=== PATIENT | male | born 1965 | race Caucasian/White ===

== ENCOUNTER 2020-07-04 14:51 | Emergency (ER) | payer BC, SELFPAY ==
[2020-07-04 15:25] VITALS: BP 130/72; PULSE 74; RESP 18; TEMP 36.6; O2SAT 98
[2020-07-04 15:49] VITALS: BP 130/72; PULSE 74; RESP 18; TEMP 36.6; O2SAT 98
--- NOTE | 2020-07-04 16:03 | ED.GENADULT ---
HPI - General Adult General Chief complaint: Skin/Abscess/Foreign Body Stated complaint: Spot on leg Source: patient Mode of arrival: ambulatory Limitations: no limitations History of Present Illness HPI narrative: Patient presents for evaluation of pain and redness to the anterior aspect of the left lower extremity. He first noticed symptoms yesterday. There is an area just below that that he believes he hit against a trailer, however he does not remember injuring the area for which he is be evaluated today. He states that he contacted a family member who works in healthcare and she recommended marking the borders to determine if the area changed in size. Patient indicates over last 24 hours the area has decreased in size. He states that his family member told him it may be cellulitis. He has a history of diabetes but states his blood sugars are running in the 160s. He checks his blood sugar twice daily. He denies any fever, chills, nausea, vomiting. He states that the area is slightly tender to touch, rating his pain is 2 out of 10. He also states that the area is warm to touch. He denies any other complaints. Related Data Home Medications Medication Instructions Recorded Confirmed budesonide-formoterol [Symbicort] 2 puff INHALATION Q12H 07/04/20 07/04/20 metformin 1,000 mg PO BID 07/04/20 07/04/20 pioglitazone 45 mg PO DAILY 07/04/20 07/04/20 simvastatin 40 mg PO DAILY 07/04/20 07/04/20 Allergies Allergy/AdvReac Type Severity Reaction Status Date / Time hydrocodone Allergy Other Verified 07/04/20 15:49 Review of Systems Review of Systems: Narrative: CONSTITUTIONAL: Denies fever, chills, or sweats. EYES: Denies visual changes, redness, or discharge. ENT: Denies rhinorrhea, congestion, sore throat, or otalgia. CARDIOVASCULAR: Denies chest pain, palpitations, or edema. RESPIRATORY: Denies cough or dyspnea. GASTROINTESTINAL: Denies abdominal pain, nausea, vomiting, or diarrhea. GENITOURINARY: Denies dysuria or hematuria. SKIN: Denies rash or itching. Reports redness in the left lower extremity MUSCULOSKELETAL: Denies back pain, joint pain. Reports pain in the left lower extremity NEUROLOGIC: Denies headache, numbness, dizziness, or weakness. PSYCHIATRIC: Denies anxiety or depression. [facility] Past Medical History Medical History (Updated 07/04/20 @ 16:12 by Herrera Cortez [facility], ) Diabetes mellitus type 2, controlled, without complications Hyperlipidemia Surgical History Surgical History History of arthroscopy of left shoulder History of cholecystectomy Family History Family History Mother Breast cancer Father Alzheimers disease Diabetes mellitus Heart disease Social History Social History (Updated 07/04/20 @ 16:08 by Herrera Cortez [facility], ) Smoking status: Never smoker Alcohol intake: current Alcohol use details: socially Substance use: never Living arrangements: with family Gender identity (if verbalized by the patient): Male Sexual Orientation (if Verbalized by the Patient): Straight or Heterosexual Spiritual care concerns: No Exam Narrative: Exam Narrative: GENERAL: Well-appearing, well-nourished, and in no acute distress. HEAD: Normocephalic, atraumatic. EYES: PERRLA and EOMI. ENT: Nares clear, no rhinorrhea or epistaxis. Mucous membranes moist. Oropharynx without tonsillar hypertrophy exudate or other lesions. Bilateral TMs pearly lozano nonbulging NECK: Supple. No adenopathy or masses. No carotid bruits or JVD CHEST: Clear to auscultation. No respiratory distress. No wheezes rales or rhonchi HEART: Regular rate and rhythm. No murmur heard. Normal peripheral pulses. ABDOMEN: Soft, nontender, nondistended, normal active bowel sounds. EXTREMITIES: Normal range of motion. No edema. SKIN: Warm, dry, no rash. Approximately 4 x 6 cm of erythema
== END 2020-07-04 16:20 | disposition home or self-care (01) ==
PROVIDERS: Emergency Provider Nurse Practitioner
DX: L03.116 Cellulitis of left lower limb (principal); E11.9 Type 2 diabetes mellitus without complications; E78.5 Hyperlipidemia, unspecified
CPT/HCPCS: 99203; G0463